=== PATIENT | female | born 1945 | race Caucasian/White ===

== ENCOUNTER → 2016-09-23 | Outpatient (CLI) | payer MEDICARE, BC ==
[2015-02-01 06:37] VITALS: BP 123/63
[~2016-09-23] MED LIST: ADVIL200 MG PO; ALDACTONE PO; ALLERGY RELIEF10 M3 PO; CARDI-OMEGA1000 MG PO; COLACE100 M1 PO; COUMADIN 5MG5 MG/TAB PO; COUMADIN 77.5 MG/TAB PO; DOCUSATE SODIUM1 TA3 PO; HCTZ 25MG25 MG PO; JANUMET 1000 MG1 TA1 PO; LANTUS100 U/ML SC; LASIX 40MG TABL40 MG PO; LEVOTHROID0.088 MG PO; LISINOPRIL20 MG PO; LISINOPRIL5 MG PO; LOTRISONE 0.05%1 CRE TP; LOVASTATIN40 MG PO; METFORMIN1000 MG PO; MOMETASONE0.05 MG/Ac NS; PRINIVIL40 MG PO; SPIRIVA18 MCG IH; ST. JOSEPH81 M2 PO; SYMBICORT1 AE3 IH; TIMOLOL 0.5% OP10 ML OD; TOPROL XL 50MG50 MG PO; TYLENOL 325MG325 MG PO; XALATAN EYE DROPS OD
== END ==
LOC: LAB 08:02
DX: E11.9 Type 2 diabetes mellitus without complications (principal)

== ENCOUNTER → 2016-10-01 | Outpatient (CLI) | payer MEDICARE, BC ==
[2015-02-01 06:37] VITALS: BP 123/63
== END ==
LOC: LAB 07:36
DX: E11.9 Type 2 diabetes mellitus without complications (principal); I10 Essential (primary) hypertension

== ENCOUNTER → 2016-10-08 | Outpatient (CLI) | payer MEDICARE, BC ==
[2015-02-01 06:37] VITALS: BP 123/63
== END ==
LOC: LAB 08:26
DX: I10 Essential (primary) hypertension (principal)

== ENCOUNTER → 2016-10-15 | Outpatient (CLI) | payer MEDICARE, BC ==
[2015-02-01 06:37] VITALS: BP 123/63
== END ==
LOC: LAB 08:16
DX: I10 Essential (primary) hypertension (principal)

== ENCOUNTER → 2016-12-17 | Outpatient (CLI) | payer MEDICARE, BC ==
[2015-02-01 06:37] VITALS: BP 123/63
== END ==
LOC: MAMMO 09:06
DX: Z12.31 Encounter for screening mammogram for malignant neoplasm of breast (principal)
CPT/HCPCS: G0202

== ENCOUNTER → 2017-02-21 | Outpatient (CLI) | payer MEDICARE, BC ==
[2015-02-01 06:37] VITALS: BP 123/63
== END ==
LOC: RAD 12:00
DX: Z95.2 Presence of prosthetic heart valve (principal)

== ENCOUNTER → 2017-03-12 | Outpatient (CLI) | payer MEDICARE, BC ==
[2015-02-01 06:37] VITALS: BP 123/63
[2017-03-12 09:01] LABS: BUN/CREATININE RATIO 17.7 (6.0-26.0); CALCIUM 10.1 mg/dL (8.4-10.2); POTASSIUM 5.1 mmol/L (3.6-5.0)
== END ==
LOC: LAB 08:25
PROVIDERS: Family Medicine
DX: E11.9 Type 2 diabetes mellitus without complications (principal); I10 Essential (primary) hypertension

== ENCOUNTER → 2017-04-21 | Outpatient (CLI) | payer MEDICARE, BC ==
[2015-02-01 06:37] VITALS: BP 123/63
== END ==
LOC: LAB 09:15
PROVIDERS: Family Medicine
DX: E03.9 Hypothyroidism, unspecified (principal)

== ENCOUNTER → 2017-10-15 | Outpatient (CLI) | payer MEDICARE, BC ==
[2015-02-01 06:37] VITALS: BP 123/63
== END ==
LOC: LAB 13:45
DX: I10 Essential (primary) hypertension (principal); E11.9 Type 2 diabetes mellitus without complications

== ENCOUNTER → 2017-10-31 | Outpatient (CLI) | payer MEDICARE, BC ==
[2015-02-01 06:37] VITALS: BP 123/63
== END ==
LOC: LAB 09:22
DX: E11.9 Type 2 diabetes mellitus without complications (principal); I10 Essential (primary) hypertension; J44.9 Chronic obstructive pulmonary disease, unspecified

== ENCOUNTER → 2017-11-28 | Outpatient (CLI) | payer MEDICARE, BC ==
[2015-02-01 06:37] VITALS: BP 123/63
[2017-11-28 10:18] LABS: ALBUMIN 4.1 g/dL (3.5-5.0); BUN/CREATININE RATIO 11.2 (6.0-26.0); CALCIUM 9.5 mg/dL (8.4-10.2); POTASSIUM 5.2 mmol/L (3.6-5.0); TOTAL BILIRUBIN 0.4 mg/dL (0.2-1.3); TOTAL PROTEIN 7.9 g/dL (6.3-8.2)
== END ==
LOC: LAB 08:57
PROVIDERS: Family Medicine
DX: E11.9 Type 2 diabetes mellitus without complications (principal); I10 Essential (primary) hypertension

== ENCOUNTER → 2018-04-08 | Outpatient (CLI) | payer MEDICARE, BC ==
[2015-02-01 06:37] VITALS: BP 123/63
== END ==
LOC: MAMMO 08:57
DX: Z12.31 Encounter for screening mammogram for malignant neoplasm of breast (principal)

== ENCOUNTER → 2018-04-24 | Outpatient (CLI) | payer MEDICARE, BC ==
[2015-02-01 06:37] VITALS: BP 123/63
== END ==
LOC: LAB 13:55
DX: E11.9 Type 2 diabetes mellitus without complications (principal)

== ENCOUNTER 2018-05-19 20:09 | Emergency (ER) | payer MEDICARE, BC ==
[2018-05-19] MEDS ORDERED: LASIX20 M1 PO (20:31)
[2018-05-19] MEDS ORDERED: LANTUS SOLOS100 U/ML SQ (20:32)
[2018-05-19] MEDS ORDERED: ULTRAM50 M1 PO (20:34)
[2018-05-19] MEDS ORDERED: METOPROLOL SUCC25 M1 PO (20:34)
[2018-05-19 21:10] LABS: URINE APPEARANCE CLOUDY; URINE COLOR YELLOW; URINE GLUCOSE NEGATIVE (NEGATIVE); URINE PROTEIN(semi-quant) TRACE mg/dL (NEGATIVE)
[2018-05-19 21:11] LABS: URINE BILIRUBIN NEGATIVE (NEGATIVE); URINE BLOOD TRACE (NEGATIVE); URINE KETONE NEGATIVE (NEGATIVE); URINE LEUKOCYTE ESTERASE 2+ (NEGATIVE); URINE NITRATE NEGATIVE (NEGATIVE); URINE UROBILINOGEN NORMAL (NORMAL); URINE WBC >50 /hpf (0-3)
[2018-05-19 21:38] LABS: BASO # 0.1 (0.02-0.10); EOS # 0.3 (0.04-0.40); EOS % 2.8 % (1.0-5.0); HEMATOCRIT 33.7 % (37.0-47.0); HEMOGLOBIN 11.1 g/dL (12.5-16.0); LYMPH# 2.7 (1.50-4.00); MEAN CELL VOLUME 88 fl (78-100); MEAN CORPUSCULAR HEMOGLOBIN 29 pg (27-31); MEAN CORPUSCULAR HGB CONC 33 g/dL (33-37); MEAN PLATELET VOLUME 10.9 fl (7.4-10.4); NEU # 7.1 (1.40-6.50); PLATELET COUNT 355 K/mm3 (130-400); RED BLOOD COUNT 3.82 M/mm3 (4.10-5.30); RED CELL DISTRIBUTION WIDTH 13.3 % (11.5-14.5); WHITE BLOOD COUNT 11.2 K/mm3 (4.8-10.8)
[2018-05-19 21:52] LABS: ALBUMIN 4.3 g/dL (3.5-5.0); CALCIUM 9.7 mg/dL (8.4-10.2); POTASSIUM 4.6 mmol/L (3.6-5.0); TOTAL BILIRUBIN 0.3 mg/dL (0.2-1.3); TOTAL PROTEIN 7.5 g/dL (6.3-8.2)
[2018-05-19] MEDS ORDERED: CEFDINIR300 MG PO (22:38)
[2018-05-20 00:16] VITALS: BP 136/55
== END 2018-05-20 00:16 | disposition home or self-care (01) ==
LOC: ED 20:09
PROVIDERS: Nurse Practitioner Family
DX: E86.0 Dehydration (principal); R44.1 Visual hallucinations; E11.39 Type 2 diabetes mellitus with other diabetic ophthalmic complication; H42 Glaucoma in diseases classified elsewhere; I10 Essential (primary) hypertension; E03.9 Hypothyroidism, unspecified; G47.33 Obstructive sleep apnea (adult) (pediatric); E87.1 Hypo-osmolality and hyponatremia; Z79.4 Long term (current) use of insulin; N39.0 Urinary tract infection, site not specified; R31.9 Hematuria, unspecified; Z79.82 Long term (current) use of aspirin; Z79.84 Long term (current) use of oral hypoglycemic drugs; Z95.2 Presence of prosthetic heart valve; Z87.891 Personal history of nicotine dependence; Z90.710 Acquired absence of both cervix and uterus; Z90.721 Acquired absence of ovaries, unilateral; Z85.9 Personal history of malignant neoplasm, unspecified
CPT/HCPCS: A4216; J0696; J7030

== ENCOUNTER → 2018-05-29 | Outpatient (CLI) | payer MEDICARE, BC ==
[2018-05-20 00:16] VITALS: BP 136/55
[~2018-05-29] MED LIST changes: +CEFDINIR300 MG PO; +LANTUS SOLOS100 U/ML SQ; +LASIX20 M1 PO; +METOPROLOL SUCC25 M1 PO; +ULTRAM50 M1 PO
[2018-05-29 11:54] LABS: URINE APPEARANCE CLEAR; URINE COLOR YELLOW; URINE PROTEIN(semi-quant) TRACE mg/dL (NEGATIVE)
[2018-05-29 11:55] LABS: URINE BILIRUBIN NEGATIVE (NEGATIVE); URINE BLOOD NEGATIVE (NEGATIVE); URINE GLUCOSE NEGATIVE (NEGATIVE); URINE KETONE NEGATIVE (NEGATIVE); URINE LEUKOCYTE ESTERASE TRACE (NEGATIVE); URINE NITRATE NEGATIVE (NEGATIVE); URINE UROBILINOGEN NORMAL (NORMAL); URINE WBC 0-1 /hpf (0-3)
[2018-05-29 12:06] LABS: CALCIUM 9.6 mg/dL (8.4-10.2); POTASSIUM 4.5 mmol/L (3.6-5.0)
== END ==
LOC: LAB 11:15
PROVIDERS: Family Medicine
DX: E11.9 Type 2 diabetes mellitus without complications (principal); R09.89 Other specified symptoms and signs involving the circulatory and respiratory systems; R60.0 Localized edema; N39.0 Urinary tract infection, site not specified; B99.9 Unspecified infectious disease; R19.7 Diarrhea, unspecified; E87.1 Hypo-osmolality and hyponatremia

== ENCOUNTER → 2018-09-01 | Outpatient (CLI) | payer MEDICARE, BC ==
[2018-09-01 10:03] LABS: CALCIUM 9.7 mg/dL (8.4-10.2); POTASSIUM 5.1 mmol/L (3.6-5.0)
== END ==
LOC: LAB 09:27
PROVIDERS: Family Medicine
DX: E11.9 Type 2 diabetes mellitus without complications (principal)

== ENCOUNTER → 2018-09-11 | Outpatient (CLI) | payer MEDICARE, BC ==
[~2018-09-11] VITALS: Ht 160 cm; Wt 103.2 kg
[~2018-09-11] MED LIST changes: +AZELASTINE137 MCG/A1 NS; +GLUCOPHAGE500 MG/TAB PO; +IPRATROPIUM BROM3 M1 IH; +LOVASTATIN40 M1 PO; +TRAMADOL 50 MG TAB PO; +ZYRTEC ALLERGY10 MG PO
[2018-09-11 09:37] LABS: CALCIUM 9.1 mg/dL (8.4-10.2); POTASSIUM 5.5 mmol/L (3.6-5.0)
[2018-09-11 09:46] VITALS: BP 124/68
== END ==
LOC: AMSURD 08:37 → LAB 08:37
PROVIDERS: Family Medicine
DX: I11.0 Hypertensive heart disease with heart failure (principal); I50.9 Heart failure, unspecified; M89.8X9 Other specified disorders of bone, unspecified site; I70.90 Unspecified atherosclerosis; Z98.890 Other specified postprocedural states; M47.814 Spondylosis without myelopathy or radiculopathy, thoracic region; E11.9 Type 2 diabetes mellitus without complications

== ENCOUNTER → 2018-09-24 | Outpatient (CLI) | payer MEDICARE, BC ==
[2018-09-11 09:46] VITALS: BP 124/68
[2018-09-24 14:56] LABS: CALCIUM 10.4 mg/dL (8.4-10.2); POTASSIUM 4.6 mmol/L (3.5-5.1)
== END ==
LOC: LAB 14:17
PROVIDERS: Family Medicine
DX: I11.0 Hypertensive heart disease with heart failure (principal); R60.0 Localized edema; E87.1 Hypo-osmolality and hyponatremia; L40.9 Psoriasis, unspecified; I50.9 Heart failure, unspecified; E11.9 Type 2 diabetes mellitus without complications

== ENCOUNTER → 2019-04-16 | Outpatient (CLI) | payer MEDICARE, BC ==
[2018-09-11 09:46] VITALS: BP 124/68
[2019-04-16 07:53] LABS: ALBUMIN 3.7 g/dL (3.4-4.8); POTASSIUM 4.1 mmol/L (3.5-5.1)
[2019-04-16 07:54] LABS: CALCIUM 9.5 mg/dL (8.3-10.5)
[2019-04-16 07:55] LABS: BASO # 0.1 (0.02-0.10); EOS # 0.1 (0.04-0.40); EOS % 0.6 % (1.0-5.0); HEMATOCRIT 26.5 % (37.0-47.0); HEMOGLOBIN 8.1 g/dL (12.5-16.0); LYMPH# 1.3 (1.50-4.00); MEAN CELL VOLUME 81 fl (78-100); MEAN CORPUSCULAR HEMOGLOBIN 25 pg (27-31); MEAN CORPUSCULAR HGB CONC 31 g/dL (33-37); MEAN PLATELET VOLUME 10.9 fl (7.4-10.4); MONO # 0.9 (0.20-0.80); NEU # 8.2 (1.40-6.50); PLATELET COUNT 405 K/mm3 (130-400); RED BLOOD COUNT 3.27 M/mm3 (4.10-5.30); RED CELL DISTRIBUTION WIDTH 13.9 % (11.5-14.5); WHITE BLOOD COUNT 10.6 K/mm3 (4.8-10.8)
[2019-04-16 07:56] LABS: TOTAL PROTEIN 7.1 g/dL (6.2-8.1)
[2019-04-16 07:57] LABS: TOTAL BILIRUBIN 0.6 mg/dL (0.2-1.2)
[2019-04-16 08:01] LABS: DIRECT BILIRUBIN 0.3 mg/dL (0.0-0.5)
[2019-04-16 08:57] LABS: URINE APPEARANCE CLEAR; URINE COLOR YELLOW
[2019-04-16 08:58] LABS: URINE BILIRUBIN NEGATIVE (NEGATIVE); URINE BLOOD TRACE (NEGATIVE); URINE GLUCOSE NEGATIVE (NEGATIVE); URINE KETONE NEGATIVE (NEGATIVE); URINE LEUKOCYTE ESTERASE TRACE (NEGATIVE); URINE MUCUS PRESENT (NOT PRESENT); URINE NITRATE NEGATIVE (NEGATIVE); URINE PROTEIN(semi-quant) 1+ mg/dL (NEGATIVE); URINE UROBILINOGEN NORMAL (NORMAL)
== END ==
LOC: LAB 07:24
PROVIDERS: Nurse Practitioner
DX: E11.9 Type 2 diabetes mellitus without complications (principal); E78.2 Mixed hyperlipidemia; E03.9 Hypothyroidism, unspecified; I95.9 Hypotension, unspecified

== ENCOUNTER 2019-05-17 14:03 | Emergency (ER) | payer MEDICARE, BC ==
[~2019-05-17] VITALS: Ht 162.6 cm; Wt 88.2 kg
[2019-05-17] MEDS ORDERED: ECOTRIN325 M2 PO (14:39)
[2019-05-17] MEDS ORDERED: POTASSIUM CHLO10 ME6 PO (14:41)
[2019-05-17] MEDS ORDERED: SYNTHROID RP0.088 MG PO (14:41)
[2019-05-17] MEDS ORDERED: LATANOPROST 2.2.5 ML OU (14:42)
[2019-05-17 15:17] LABS: HEMOGLOBIN 8.2 g/dL (12.5-16.0); MEAN CELL VOLUME 80 fl (78-100); MEAN CORPUSCULAR HGB CONC 30 g/dL (33-37); MEAN PLATELET VOLUME 11.1 fl (7.4-10.4); PLATELET COUNT 367 K/mm3 (130-400); RED BLOOD COUNT 3.36 M/mm3 (4.10-5.30); RED CELL DISTRIBUTION WIDTH 17.5 % (11.5-14.5)
[2019-05-17 15:33] LABS: ALBUMIN 3.7 g/dL (3.4-4.8); POTASSIUM 4.3 mmol/L (3.5-5.1)
[2019-05-17 15:35] LABS: CALCIUM 9.3 mg/dL (8.3-10.5)
[2019-05-17 15:36] LABS: TOTAL PROTEIN 6.7 g/dL (6.2-8.1)
[2019-05-17 15:38] LABS: TOTAL BILIRUBIN 0.4 mg/dL (0.2-1.2)
[2019-05-17 15:42] LABS: MEAN CORPUSCULAR HEMOGLOBIN 24 pg (27-31)
[2019-05-17 15:54] LABS: LYMPHOCYTE 12 % (20-51); MONOCYTE 5 % (3-10); NEUTROPHILS 83 % (42-75)
[2019-05-17 15:55] LABS: HYPOCHROMIA 1+; MICROCYTOSIS 1+
[2019-05-17 16:25] LABS: URINE APPEARANCE CLEAR; URINE BILIRUBIN NEGATIVE (NEGATIVE); URINE BLOOD NEGATIVE (NEGATIVE); URINE COLOR YELLOW; URINE GLUCOSE NEGATIVE (NEGATIVE); URINE KETONE NEGATIVE (NEGATIVE); URINE LEUKOCYTE ESTERASE NEGATIVE (NEGATIVE); URINE NITRATE NEGATIVE (NEGATIVE); URINE PROTEIN(semi-quant) TRACE mg/dL (NEGATIVE); URINE UROBILINOGEN NORMAL (NORMAL)
[2019-05-17 16:26] LABS: URINE MUCUS PRESENT (NOT PRESENT)
[2019-05-17 17:30] VITALS: BP 107/50
== END 2019-05-17 18:09 | disposition short-term general hospital (02) ==
LOC: ED 14:03
PROVIDERS: Internal Medicine; Nurse Practitioner Primary Care
DX: I11.0 Hypertensive heart disease with heart failure (principal); I50.9 Heart failure, unspecified; R79.89 Other specified abnormal findings of blood chemistry; E11.9 Type 2 diabetes mellitus without complications; G47.33 Obstructive sleep apnea (adult) (pediatric); Z79.4 Long term (current) use of insulin; Z79.82 Long term (current) use of aspirin